=== PATIENT | female | born 1960 | race Caucasian/White ===

== ENCOUNTER 2017-03-07 20:29 | Emergency (ER) | payer OTHER ==
[~2017-03-07 20:29] MED LIST: IBUPROFEN PO; VICODIN 5/500 T1 TAB PO
== END 2017-03-07 21:28 | disposition left against medical advice (07) ==
LOC: CED 20:29
DX: Z53.21 Procedure and treatment not carried out due to patient leaving prior to being seen by health care provider (principal)